=== PATIENT | male | born 1955 | race Caucasian/White ===

== ENCOUNTER 2018-05-05 07:56 | Observation (INO) | payer BC ==
[~2018-05-05] VITALS: Ht 172.7 cm; Wt 99.8 kg
[~2018-05-05 07:56] MED LIST: ASPI-496 PO; CARV3.1212 PO; ISOS30TA8 PO; MULT-6 PO; NITR0.4T SL; ROSU40TA PO; TEST5GEL17 TP; TICA90TA PO; UBID30CA PO; ZOLP10TA PO
[2018-05-05 08:25] VITALS: BP 154/90
[2018-05-05] MEDS ORDERED: ALLO100T30 PO (08:44)
[2018-05-05] MEDS ORDERED: CHOL400C PO (08:44)
[2018-05-05] MEDS ORDERED: OMEG-14 PO (08:44)
[2018-05-05] MEDS ORDERED: VERAPAMIL 2.5 MG/ML, 2ML ONE (09:52)
[2018-05-05] MEDS ORDERED: NITROGLYCERIN 5 MG/ML, 10ML ONE (09:52)
[2018-05-05] MEDS ORDERED: MIDAZOLAM 1 MG/ML, 5ML ONE (09:52)
[2018-05-05] MEDS ORDERED: TICAGRELOR 90 MG TABLET ONE (09:52)
[2018-05-05] MEDS ORDERED: FENTANYL PF 100 MCG/2ML ONE (09:52)
[2018-05-05] MEDS ORDERED: HEPARIN 1,000 UNITS/ML, 10ML ONE (09:53)
[2018-05-05] MEDS ORDERED: BIVALIRUDIN 250 MG ONE (09:53)
[2018-05-05] MEDS ORDERED: LIDOCAINE/PF 1%, 30ML ONE (09:53)
[2018-05-05] MEDS ORDERED: MIDAZOLAM 1 MG/ML, 2ML ONE (10:57)
[2018-05-05] MEDS ORDERED: BIVALIRUDIN 250 MG in DEXTROSE 5% 50 ML IV SCH (11:21)
[2018-05-05] MEDS ORDERED: SODIUM CHLORIDE 0.9% 1,000 ML IV SCH (11:21)
[2018-05-05] MEDS ORDERED: NITROGLYCERIN 0.4 MG BOTTLE (25 TABS) SL PRN (11:30)
[2018-05-05] MEDS ORDERED: ACETAMINOPHEN 325 MG TABLET PO PRN (11:30)
[2018-05-05] MEDS ORDERED: ZOLPIDEM 5MG TABLET PO PRN (11:30)
[2018-05-05] MEDS ORDERED: ONDANSETRON 2MG/ML, 2ML IVPush PRN (11:30)
[2018-05-05] MEDS ORDERED: ZOLPIDEM 10MG TABLET PO PRN (11:30)
[2018-05-05 14:55] VITALS: BP 133/79
[2018-05-05 18:17] VITALS: BP 147/94
[2018-05-05] MEDS: CARVEDILOL 3.125 MG TABLET PO SCH (18:17)
[2018-05-05 18:42] LABS: TROPONIN I 0.102 ng/mL (0.000-0.045)
[2018-05-05] MEDS ORDERED: ATORVASTATIN 80 MG TABLET PO SCH (21:00)
[2018-05-05] MEDS ORDERED: TICAGRELOR 90 MG TABLET PO SCH (21:00)
[2018-05-05] MEDS: TICAGRELOR 90 MG TABLET PO SCH (21:03)
[2018-05-06 01:13] VITALS: BP 129/74
[2018-05-06 05:26] LABS: ALBUMIN 3.5 g/dL (3.4-5.0); ANION GAP 8 mmol/L (5-15); CALCIUM 8.6 mg/dL (8.5-10.1); CHLORIDE 109 mmol/L (98-107); CREATININE 0.94 mg/dL (0.7-1.3)
[2018-05-06] MEDS ORDERED: ASPIRIN 81 MG TABLET EC PO SCH (06:00)
[2018-05-06] MEDS: CARVEDILOL 3.125 MG TABLET PO SCH (06:17)
[2018-05-06 08:03] VITALS: BP 150/87
[2018-05-06] MEDS: TICAGRELOR 90 MG TABLET PO SCH (08:20)
[2018-05-06] MEDS ORDERED: MULTIVITAMIN 1 TABLET PO SCH (09:00)
[2018-05-06] MEDS ORDERED: ALLOPURINOL 100 MG TABLET PO SCH (09:00)
[2018-05-06] MEDS ORDERED: UBIDECARENONE 60 MG PO SCH (09:00)
[2018-05-06] MEDS ORDERED: CHOLECALCIFEROL 400 UNITS TABLET PO SCH (09:00)
[2018-05-06] MEDS ORDERED: OMEGA-3/FISH OIL CAPSULE PO SCH (09:00)
[2018-05-06] MEDS ORDERED: TESTOSTERONE 5 GM TP SCH (09:00)
== END 2018-05-06 11:45 | disposition home or self-care (01) ==
LOC: CACL 07:56 → ORIP 11:21 → 5SO 14:44 → DCLOUNGE 05-06 11:25
PROVIDERS: ADMIT Internal Medicine Cardiovascular Disease; ATTEND Internal Medicine Cardiovascular Disease
DX: I25.110 Atherosclerotic heart disease of native coronary artery with unstable angina pectoris (principal); I25.82 Chronic total occlusion of coronary artery; E66.9 Obesity, unspecified; E78.5 Hyperlipidemia, unspecified
CPT/HCPCS: 36415; 80048; 82040; 84484; 85014; 85018; 92978; 93005; 93459; 99156; 99157; C1725; C1753; C1760; C1769; C1874; C1887; C1894; C9604; G0378; J0583; J2250; J3010; J3490; Q9967; 93458; J1644